=== PATIENT | female | born 1990 | race Caucasian/White ===

== ENCOUNTER 2016-09-13 07:00 | Emergency (ER) | payer OTHER ==
[~2016-09-13] VITALS: Ht 157.5 cm; Wt 58.6 kg
[2016-09-13 07:45] LABS: HCG UR OBC PASS
[2016-09-13 07:52] LABS: BLOOD UREA NITROGEN 16 mg/dL (7-18)
[2016-09-13] MEDS ORDERED: MAALOX/HYOSCYAMINE/LIDOCAINE 45 ML BOTTLE ONE (08:55)
[2016-09-13] MEDS ORDERED: MAALOX/HYOSCYAMINE/LIDOCAINE 45 ML BOTTLE PO ONE (09:30)
[2016-09-13 09:50] VITALS: BP 126/76
== END 2016-09-13 09:59 | disposition home or self-care (01) ==
LOC: ED 08:37
DX: K29.00 Acute gastritis without bleeding (principal)
CPT/HCPCS: 36415; 80048; 81003; 81025; 82040; 85025; 99284